=== PATIENT | male | born 1950 | race Two or more races ===

== ENCOUNTER 2017-12-26 06:25 | Inpatient (IN) | payer MEDICARE, OTHER ==
[~2017-12-26 06:25] MED LIST: BISACODYL 10 MG SUPP RECTAL PRN; BP Med; LACTULOSE SYRUP 20 GM/30 ML CUP PO PRN; MAGNESIUM HYDROXIDE SUSP 30 ML CUP PO PRN; NALOXONE HCL 0.4 MG/ML AMP IV PUSH PRN; ONDANSETRON HCL 4 MG/2 ML VIAL IVP PRN; PEPT262C2 CHEW; SENNOSIDES 8.6 MG TAB PO PRN; SODIUM CHLORIDE 0.9% FLUSH 10 ML FLUSH IV FLUSH PRN
[2017-12-26 07:50] VITALS: BP 127/88; PULSE 75; RESP 20; TEMP 96.3; O2SAT 98
[2017-12-26] MEDS: SODIUM CHLOR 0.9% 1000 ML INJ 1,000 ML IV SCH ×3 (08:00→22:18)
--- NOTE | 2017-12-26 08:57 | HHI.HP ---
[facility] Service [facility] Primary Care Physician Non-Staff Admission Diagnosis Abdominal pain Diagnoses: (1) Pancreatitis (2) Pulmonary nodule Chief Complaint: Abdominal pain Travel History International Travel<30 Days: No Contact w/Intl Traveler <30 Da: No Traveled to Known Affected Are: No History of Present Illness This is a pleasant 67-year-old male patient with a known medical history of CAD , hypertension and history of tobacco abuse who presented to the ED with complaints of abdominal pain with associated nausea. Patient states that his symptoms began 3 days ago after eating, thinking he had food poisoning. He stated his symptoms continued and felt like reflux, used multiple over-the- counter remedies including Tums without any relief. Patient rates his pain an 8 out of 10 on pain scale, characterized as aching and burning in nature, denies any radiation of pain. Patient states the pain is worse when he eats. Denies any relieving factors. Patient does admit to taking one baby aspirin daily. Denies any other NSAID use. He does state he underwent a colonoscopy 2 months ago which was reportedly negative. Follows with his PCP and denies any recent changes to his medicines. It should be noted that patient's father had a history of colon cancer as well as his mother having bone cancer. Patient denies any recent fevers, chills, cough, shortness of breath, headache, vomiting , diarrhea or dysuria. Patient denies any melena or hematochezia. Patient denies ever having this type of pain before. Abdomen/pelvis CT upon presentation showing possible early acute pancreatitis although lipase is within normal limits. Otherwise no acute findings found. Incidentally a right middle and right lower lobe nodule is seen. CT of the chest pending. Review of Systems Constitutional: COMPLAINS OF: Chills, DENIES: Fatigue, Fever Eyes: DENIES: Blurred vision, Diplopia Respiratory: DENIES: Cough, Sputum production, Shortness of breath Cardiovascular: DENIES: Chest pain, Palpitations Gastrointestinal: COMPLAINS OF: Abdominal pain, Nausea, DENIES: Black stools, Bloody stools, Constipation, Diarrhea, Vomiting Musculoskeletal: DENIES: Joint pain Hematologic/lymphatic: DENIES: Bruising Neurologic: DENIES: Abnormal gait Psychiatric: DENIES: Anxiety Except as stated in HPI: all other systems reviewed are Neg Past Family Social History Past Medical History CAD Hypertension History of tobacco abuse Past Surgical History Denies any previous surgeries. Colonoscopy 2 months ago. Reported Medications Active Reported [BP Med] Pepto-Bismol (Bismuth Subsalicylate) 262 Mg Chew 524 Mg CHEW PRN Allergies: Coded Allergies: No Known Allergies (Verified Allergy, Unknown, 12/26/17) Active Ordered Medications Current Medications Medications (Trade) Dose Ordered Sig/Mayela Route Start Time Stop Time Status Last Admin Sodium Chloride 1,000 ml @ 125 mls/hr Q8H IV 12/26/17 05:05 12/26/17 08:00 (NS Flush) 2 ml UNSCH PRN IV FLUSH 12/26/17 05:15 (NS Flush) 2 ml BID IV FLUSH 12/26/17 09:00 12/26/17 09:00 (Tylenol) 650 mg Q4H PRN PO 12/26/17 05:15 (Zofran Inj) 4 mg Q6H PRN IVP 12/26/17 05:15 (Narcan Inj) 0.4 mg UNSCH PRN IV PUSH 12/26/17 05:15 (Naomi-Colace) 1 tab BID PO 12/26/17 09:00 12/26/17 09:00 (Milk Of Magnesia Liq) 30 ml Q12H PRN PO 12/26/17 05:15 (Senokot) 17.2 mg Q12H PRN PO 12/26/17 05:15 (Dulcolax Supp) 10 mg DAILY PRN RECTAL 12/26/17 05:15 (Lactulose Liq) 30 ml DAILY PRN PO 12/26/17 05:15 (Protonix Inj) 40 mg Q24H IV PUSH 12/26/17 11:00 12/26/17 11:39 (Mag-Al Plus Susp Liq) 30 ml Q6H PRN PO 12/26/17 10:45 Family History Maternal medical history significant for bone cancer. Paternal medical history significant for colon cancer. Social History Patient states he quit tobacco use 25 years ago. Previously smoked 1 pack per day for 15 years. Patient states he is exposed to secondhand smoke with his . Admits to alcohol use once a month. Denies any illicit drug use. Physical Exam Vital Signs Vital Signs Date Time Temp Pulse Resp B/P (MAP) Pulse Ox O2 Delivery O2 Flow Rate FiO2 12/26/17 07:50 96.3 75 20 127/88 (101) 98 Physical Exam GENERAL: Well-developed, well-nourished patient in NAD. SKIN: Warm and dry. No rash. HEAD: Normocephalic. Atraumatic. EYES: Pupils equal and round. No scleral icterus. No injection or drainage. ENT: No nasal bleeding or discharge. Mucous membranes pink and moist. NECK: Supple. Trachea midline. CARDIOVASCULAR: Regular rate and rhythm. S1, S2 noted. No murmur appreciated. No chest pain to palpation. RESPIRATORY: No accessory muscle use. Clear to auscultation. Breath sounds equal bilaterally. GASTROINTESTINAL: Abdomen soft, tender to palpation in left upper and right upper quadrants and midepigastric area, nondistended. Normoactive bowel sounds x4. MUSCULOSKELETAL: No obvious deformities. Extremities without clubbing, cyanosis , or edema. NEUROLOGICAL: Awake and alert. No obvious cranial nerve deficits. Motor grossly within normal limits. 5/5 muscle strength in bilateral upper and lower extremities. Normal speech. PSYCHIATRIC: Appropriate mood and affect; insight and judgment normal. Septic Shock Reassessment Septic shock perfusion: reassessment completed Caprini VTE Risk Assessment Caprini VTE Risk Assessment: Mod/High Risk (score >= 2) Caprini Risk Assessment Model Point Value = 1 Point Value = 2 Point Value = 3 Point Value = 5 Age 41-60 Minor surgery BMI > 25 kg/m2 Swollen legs Varicose veins or History of unexplained or recurrent spontaneous Oral contraceptives or hormone replacement Sepsis (< 1 month) Serious lung disease, including pneumonia (< 1 month) Abnormal pulmonary function Acute myocardial infarction Congestive heart failure (< 1 month) History of inflammatory bowel disease Medical patient at bed rest Age 61-74 Arthroscopic surgery Major open surgery (> 45 min) Laparoscopic surgery (> 45 min) Malignancy Confined to bed (> 72 hours) Immobilizing plaster cast Central venous access Age >= 75 History of VTE Family history of VTE Factor V Leiden Prothrombin [id number] Lupus anticoagulant Anticardiolipin antibodies Elevated serum homocysteine Heparin-induced thrombocytopenia Other congenital or acquired thrombophilia Stroke (< 1 month) Elective arthroplasty Hip, pelvis, or leg fracture Acute spinal cord injury (< 1 month) Prophylaxis Regimen Total Risk Factor Score Risk Level Prophylaxis Regimen 0-1 Low Early ambulation 2 Moderate Order ONE of the following: *Sequential Compression Device (SCD) *Heparin 5000 units SQ BID 3-4 Higher Order ONE of the following medications: *Heparin 5000 units SQ TID *Enoxaparin/Lovenox 40 mg SQ daily (WT < 150 kg, CrCl > 30 mL/min) *Enoxaparin/Lovenox 30 mg SQ daily (WT < 150 kg, CrCl > 10-29 mL/min) *Enoxaparin/Lovenox 30 mg SQ BID (WT < 150 kg, CrCl > 30 mL/min) AND/OR *Sequential Compression Device (SCD) 5 or more Highest Order ONE of the following medications: *Heparin 5000 units SQ TID (Preferred with Epidurals) *Enoxaparin/Lovenox 40 mg SQ daily (WT < 150 kg, CrCl > 30 mL/min) *Enoxaparin/Lovenox 30 mg SQ daily (WT < 150 kg, CrCl > 10-29 mL/min) *Enoxaparin/Lovenox 30 mg SQ BID (WT < 150 kg, CrCl > 30 mL/min) AND *Sequential Compression Device (SCD) Assessment and Plan Problem List: (1) Pancreatitis ICD Code: K85.90 - Acute pancreatitis without necrosis or infection, unspecified (2) Pulmonary nodule ICD Code: R91.1 - Solitary pulmonary nodule Assessment and Plan This is a pleasant 67-year-old male patient with a known medical history of CAD , hypertension and history of tobacco abuse who presented to the ED with complaints of abdominal pain with associated nausea. Patient states that his symptoms began 3 days ago after eating, thinking he had food poisoning. Abdominal pain with associated nausea rule out pancreatitis versus gastroenteritis versus other unknown etiology - Abdominal/pelvis CT reviewed showing recent faint stranding in the peripancreatic fatty tissues adjacent to the pancreatic head. May represent very early pancreatitis. Lipase level is normal. Bilateral inguinal hernias. - Protonix 40 mg daily. Added Maalox for dyspepsia. Morphine IV available for pain. Toradol given 1 in ED. Continue IV fluids. - Mild leukocytosis on CBC, No left shift. - Supportive care. Abnormal UA with leukocyte esterase and white blood cells. Urine culture pending. Will follow. Started on ceftriaxone. Leukocytosis adjust as needed for FLACA and sensitivity. Right pulmonary nodule - Abdominal/pelvis CT showing right middle lobe nodule densities as well as right lower middle lobe nodules in the right perihilar lower lobe. - CT chest/thorax ordered and pending. - Pulmonology consulted and appreciate input and recommendations. History of smoking years ago. Exposed to second hand smoke, smokes, have been together for over 30 years. - Supplemental O2 as needed, patient is comfortable on room air. DVT Prophylaxis: SCDs. Heparin. Rhea Hernandez December 26, 2017 08:57
[2017-12-26] MEDS: SODIUM CHLORIDE 0.9% FLUSH 10 ML FLUSH IV FLUSH SCH ×2 (09:00→21:57)
[2017-12-26] MEDS: DOCUSATE SODIUM 50 MG/SENNA 8.6 MG TAB PO SCH ×2 (09:00→21:56)
[2017-12-26] MEDS ORDERED: KETOROLAC TROMETHAMINE 30 MG/ML (IVP) VIAL IV PUSH ONE (09:30)
[2017-12-26] MEDS ORDERED: ALUMINUM/MAGNESIUM/SIMETH 30 ML CUP PO PRN (10:45)
[2017-12-26] MEDS: PANTOPRAZOLE SODIUM 40 MG VIAL IV PUSH SCH (11:39)
[2017-12-26 12:25] VITALS: BP 142/89; PULSE 80; RESP 20; TEMP 97.2; O2SAT 94
[2017-12-26] MEDS ORDERED: MORPHINE SULFATE 4 MG/ML INJ IV PUSH PRN (13:30)
[2017-12-26] MEDS ORDERED: HEPARIN SODIUM - SQ 10,000 UNITS/ML VIAL SQ ONE (13:30)
[2017-12-26] MEDS: cefTRIAXone INJ 1,000 MG in SODIUM CHLORIDE 0.9% INJ 100 ML IV SCH (14:26)
[2017-12-26 15:52] VITALS: BP 120/77; PULSE 64; RESP 20; TEMP 96.3; O2SAT 64
[2017-12-26 20:00] VITALS: BP 129/76; PULSE 78; RESP 20; TEMP 98.1; O2SAT 93
--- NOTE | 2017-12-26 20:29 | MB ---
cc: Chandan Wen MD DATE: 12/26/2017 REQUESTING PHYSICIAN: Dr. Meghann Bettencourt REASON FOR CONSULTATION: Evaluate for lung nodule. HISTORY OF PRESENT ILLNESS: Mr. Carlson is a 67-year-old male with history of coronary artery disease and hypertension. He came to the hospital with 3 days history of abdominal pain in the mid epigastric area. He was also complaining of constipation. Did not have any nausea or vomiting. No fevers, chills. No night sweats. He came to the hospital. He had a CT scan of the abdomen done, which shows he has peripancreatic fatty tissue. Otherwise, no acute process. He has 3 nodular densities in the right middle and right lower lobe. CBC shows WBC count 15, hematocrit 14.3, hemoglobin 14.3, hematocrit 43.1, MCV 88, platelet count 251. Sodium 140, potassium 3.8, chloride 100, CO2 29, BUN 10, creatinine 0.90. AST 17, ALT 18, lipase 145. The patient states that just a little while ago, he had a big bowel movement. After this, the abdominal pain is much better. PAST MEDICAL HISTORY: Significant for coronary artery disease, hypertension, history of recent colonoscopy. MEDICATIONS: He is currently taking Rocephin 1 g a day, morphine for pain, Protonix 40 mg a day. ALLERGIES: NO KNOWN DRUG ALLERGIES. SOCIAL HISTORY: He has history of smoking, which he quit 30 years ago. Drinks socially. He works as a rn oncology clinical. FAMILY HISTORY: He is . He has 6 children. REVIEW OF SYSTEMS: No Fever, weight is stable. No malignancy. No DVT or pulmonary embolism. No seizure, stroke or epilepsy. PHYSICAL EXAMINATION: GENERAL: Elderly male, not in acute distress. VITAL SIGNS: Blood pressure 120/77, heart rate 64, respirations 20, temperature 96.3. HEENT: Unremarkable. NECK: Supple. JVD noted. CHEST: Symmetrical bilaterally. No rhonchi. CARDIOVASCULAR: S1, S2 normal. ABDOMEN: Soft, nontender, nondistended. Bowel sounds are present. EXTREMITIES: No edema. CENTRAL NERVOUS SYSTEM: Alert and oriented x 3. No focal deficit. IMPRESSION: 1. Lung nodule at the base of the lung seen on the CT scan of the abdomen. 2. Abdominal pain has improved. 3. History of nicotine use. 4. Hypertension. PLAN: I discussed with the patient, we will get the CT scan of the chest reviewed and then determine if the nodule needs biopsy or he can have serial CAT scan followup. Continue his present antibiotic. We will check his pulmonary function study. Further treatment will depend on the course in the hospital. Thank you, Dr. Meghann Bettencourt, for this consult. MD HARINDER Ward/DONN , 08:06 PM , 08:27 PM TG
[2017-12-27] VITALS: BP 121/79; PULSE 90; RESP 20; TEMP 99.5; O2SAT 93
[2017-12-27] MEDS: SODIUM CHLOR 0.9% 1000 ML INJ 1,000 ML IV SCH ×2 (05:05→13:05)
[2017-12-27 06:38] LABS: CHLORIDE 107 MEQ/L (98-107); SODIUM (NA) 139 MEQ/L (136-145)
[2017-12-27 06:41] LABS: ALBUMIN 2.9 GM/DL (3.4-5.0); BICARBONATE 28.7 MEQ/L (21.0-32.0); BLOOD UREA NITROGEN 9 MG/DL (7-18); GLUCOSE,RANDOM 92 MG/DL (74-106)
[2017-12-27 06:44] LABS: ALT (GPT) 20 U/L (12-78); AST (GOT) 14 U/L (15-37); CREATININE 0.98 MG/DL (0.60-1.30); GLOMERULAR FILTRATION RATE 76 ML/MIN (>89)
[2017-12-27 06:46] LABS: TOTAL BILIRUBIN ADULT 1.1 MG/DL (0.2-1.0); TOTAL PROTEIN 6.9 GM/DL (6.4-8.2)
[2017-12-27 06:47] LABS: ALKALINE PHOSPHATASE 69 U/L (45-117); AUTOMATED NEUTROPHIL # 7.9 TH/MM3 (1.8-7.7); BASOPHIL # 0.1 TH/MM3 (0-0.2); BASOPHIL % 0.9 % (0.0-2.0); EOSINOPHIL # 0.2 TH/MM3 (0-0.4); EOSINOPHIL % 2.2 % (0.0-4.0); HEMATOCRIT 41.5 % (39.0-51.0); HEMOGLOBIN 13.9 GM/DL (13.0-17.0); LYMPH % 16.5 % (9.0-44.0); LYMPHOCYTE # 1.8 TH/MM3 (1.0-4.8); MEAN CORPUSCULAR HEMOGLOBIN 29.5 PG (27.0-34.0); MEAN CORPUSCULAR HGB CONC 33.5 % (32.0-36.0); MONO % 8.7 % (0.0-8.0); MONOCYTE # 0.9 TH/MM3 (0-0.9); NEUT % 71.7 % (16.0-70.0); PLATELET COUNT 228 TH/MM3 (150-450); RED BLOOD COUNT 4.72 MIL/MM3 (4.50-5.90); RED CELL DISTRIBUTION WIDTH 13.1 % (11.6-17.2); WHITE BLOOD COUNT 10.9 TH/MM3 (4.0-11.0)
[2017-12-27] MEDS ORDERED: IOHEXOL 350 MG/ML 10 ML VIAL (for RAD DIAG) IVCONTRAST ONE (07:37)
--- NOTE | 2017-12-27 07:48 | RADRPT ---
EXAM DATE/TIME: 12/27/2017 07:26 [place] COMPARISON: CT ABDOMEN & PELVIS W CONTRAST, December 26, 2017, 1:50. INDICATIONS : Evaluate for mass. Lung nodules seen on CT Abdomen/pelvis. IV CONTRAST: 60 cc Omnipaque 350 (iohexol) IV RADIATION DOSE: 7.82 CTDIvol (mGy) MEDICAL HISTORY : Hypertension. SURGICAL HISTORY : None. ENCOUNTER: Initial ACUITY: 2 days PAIN SCALE: 3/10 LOCATION: lower chest TECHNIQUE: Volumetric scanning of the chest was performed. Using automated exposure control and adjustment of t he mA and/or kV according to patient size, radiation dose was kept as low as reasonably achievable to obtain optimal diagnostic quality images. DICOM format image data is available electronically for review and comparison. Follow-up recommendations for detected pulmonary nodules are based at a minimum on nodule size and pa tient risk factors according to Fleischner Society Guidelines. FINDINGS: LUNGS: There are several, approximately 8, pulmonary nodule seen measuring up to 0.8 cm. There is emphysemat ous change seen throughout the upper lungs. There is minimal suspected dependent atelectasis at the p osterior lower lobes. PLEURA: There is no pleural thickening or pleural effusion. MEDIASTINUM: The heart and great vessels demonstrate no acute abnormality. There is no mediastinal or hilar lymph adenopathy. AXILLAE: Within normal limits. No lymphadenopathy. SKELETAL: Within normal limits for patient age. MISCELLANEOUS: The patient had a CT of the abdomen and pelvis earlier today. CONCLUSION: 1. Multiple small pulmonary nodules. These are nonspecific. Multiple nodules could represent infectio us/inflammatory processes such as granulomas versus neoplastic and metastatic disease. 2. Emphysematous change in the upper lungs. Enio Valero MD on December 27, 2017 at 7:39 Board Certified Radiologist. This report was verified electronically.
[2017-12-27 09:00] VITALS: BP 142/99; PULSE 85; RESP 18; TEMP 96.4; O2SAT 94
--- NOTE | 2017-12-27 09:44 | HHI.PR ---
Subjective Remarks Follow-up chest pain and abdominal pain and pulmonary nodules. Patient seen and examined, lying in bed comfortably in no apparent distress. Eating well with no abdominal pain, nausea or vomiting. All symptoms have resolved. Chest CT reviewed showing multiple pulmonary nodules throughout lung barber. Spoke to Dr. Wen, pulmonology, who desires to see patient in follow-up in the office. Nodules are not able to be biopsied at this time. Will follow up in the office. Patient is understandable with the plan. Vital signs stable. Afebrile. Objective Vitals Vital Signs Date Time Temp Pulse Resp B/P (MAP) Pulse Ox O2 Delivery O2 Flow Rate FiO2 12/27/17 00:00 99.5 90 20 121/79 (93) 93 12/26/17 20:00 98.1 78 20 129/76 (93) 93 12/26/17 15:52 96.3 64 20 120/77 (91) 64 12/26/17 12:25 97.2 80 20 142/89 (106) 94 I/O 12/26/17 12/26/17 12/26/17 12/27/17 12/27/17 12/27/17 07:00 15:00 23:00 07:00 15:00 23:00 Intake Total 120 ml 480 ml Balance 120 ml 480 ml Intake Oral 120 ml 480 ml # Voids 3 4 # Bowel Movements 1 Result Diagram: 12/27/17 0605 12/27/17 0605 Imaging Last Impressions Chest CT 12/27/17 0000 Signed Impressions: Service Date/Time: December 07:26 - CONCLUSION: 1. Multiple small pulmonary nodules. These are nonspecific. Multiple nodules could represent infectious/inflammatory processes such as granulomas versus neoplastic and metastatic disease. 2. Emphysematous change in the upper lungs. Enio Valero MD Objective Remarks GENERAL: Well-developed, well-nourished patient in NAD. SKIN: Warm and dry. No rash. HEAD: Normocephalic. Atraumatic. EYES: Pupils equal and round. No scleral icterus. No injection or drainage. ENT: No nasal bleeding or discharge. Mucous membranes pink and moist. NECK: Supple. Trachea midline. CARDIOVASCULAR: Regular rate and rhythm. S1, S2 noted. No murmur appreciated. RESPIRATORY: No accessory muscle use. Clear to auscultation. Breath sounds equal bilaterally. GASTROINTESTINAL: Abdomen soft, non-tender, nondistended. Normoactive bowel sounds x4. MUSCULOSKELETAL: No obvious deformities. Extremities without clubbing, cyanosis , or edema. NEUROLOGICAL: Awake and alert. No obvious cranial nerve deficits. Motor grossly within normal limits. 5/5 muscle strength in bilateral upper and lower extremities. Normal speech. PSYCHIATRIC: Appropriate mood and affect; insight and judgment normal. A/P Problem List: (1) Pancreatitis ICD Code: K85.90 - Acute pancreatitis without necrosis or infection, unspecified (2) Pulmonary nodule ICD Code: R91.1 - Solitary pulmonary nodule Assessment and Plan This is a pleasant 67-year-old male patient with a known medical history of CAD , hypertension and history of tobacco abuse who presented to the ED with complaints of abdominal pain with associated nausea. Patient states that his symptoms began 3 days ago after eating, thinking he had food poisoning. Abdominal pain with associated nausea rule out pancreatitis versus gastroenteritis versus other unknown etiology - Abdominal/pelvis CT reviewed showing recent faint stranding in the peripancreatic fatty tissues adjacent to the pancreatic head. May represent very early pancreatitis. Lipase level is normal. Bilateral inguinal hernias. - Protonix 40 mg daily. Added Maalox for dyspepsia. Morphine IV available for pain. Toradol given 1 in ED. HEENT is well controlled. - Mild leukocytosis on CBC, No left shift. Stable. - Supportive care. Abnormal UA with leukocyte esterase and white blood cells. Urine culture probable contaminants. Will DC antibiotics. Right pulmonary nodule - Abdominal/pelvis CT showing right middle lobe nodule densities as well as right lower middle lobe nodules in the right perihilar lower lobe. - CT chest/thorax ordered and pending. - Pulmonology consulted and appreciate input and recommendations. History of smoking years ago. Exposed to second hand smoke, smokes, have been together for over 30 years. - Supplemental O2 as needed, patient is comfortable on room air. -Continue antibiotics on discharge. Follow-up PCP and pulmonology. DVT Prophylaxis: SCDs. Heparin. Rhea Hernandez December 27, 2017 09:44
[2017-12-27] MEDS: DOCUSATE SODIUM 50 MG/SENNA 8.6 MG TAB PO SCH (10:03)
[2017-12-27] MEDS: SODIUM CHLORIDE 0.9% FLUSH 10 ML FLUSH IV FLUSH SCH (10:04)
[2017-12-27] MEDS: ACETAMINOPHEN 325 MG TAB PO PRN ×2 (10:09→14:12)
[2017-12-27] MEDS: PANTOPRAZOLE SODIUM 40 MG VIAL IV PUSH SCH (10:37)
[2017-12-27 12:00] VITALS: BP 128/81; PULSE 80; RESP 18; TEMP 97.3; O2SAT 95
[2017-12-27] MEDS: cefTRIAXone INJ 1,000 MG in SODIUM CHLORIDE 0.9% INJ 100 ML IV SCH (14:13)
[2017-12-27] MEDS ORDERED: PANT20 PO (14:25)
--- NOTE | 2017-12-27 14:25 | HHI.DCPOC ---
Discharge Care Plan Diagnosis: (1) Pancreatitis (2) Pulmonary nodule Additional Problems PLEASE AVOID ALCOHOL. Goals to Promote Your Health * To prevent worsening of your condition and complications * To maintain your health at the optimal level Directions to Meet Your Goals Take your medications as prescribed Follow your dietary instruction Follow activity as directed Keep your appointments as scheduled Take your immunizations and boosters as scheduled If your symptoms worsen call your PCP, if no PCP go to Urgent Care Center or Emergency Room Smoking is Dangerous to Your Health. Avoid second hand smoke Call the 24-hour hour crisis hotline for domestic abuse at Rhea Hernandez December 27, 2017 14:25
[2017-12-27] MEDS ORDERED: MAG-LIQ PO (14:26)
[2017-12-27] MEDS ORDERED: AMOX875T2 PO (15:36)
--- NOTE | 2017-12-28 09:54 | RSPPFT ---
DATE OF PROCEDURE: 12/27/17 COMMENTS: Spirometry shows FVC of 3.9 at 62% of predicted, FEV1 of 3.0 at 74%, FEV1/FVC ratio is normal. Flow is normal at FEF 25-75. Flow is decreased at FEF 25, and FEF 75. There is no response after bronchodilator treatment. IMPRESSION: 1. Mild small airways obstructive lung disease. 2. No response after bronchodilator treatment.
== END 2017-12-27 15:15 | disposition home or self-care (01) | DRG 440 ==
LOC: PHEDDLT 06:25 → PH3A 06:35 → OBSVTOIN 15:51
PROVIDERS: ADMIT Hospitalist; ATTEND Hospitalist
DX: K85.90 Acute pancreatitis without necrosis or infection, unspecified (principal); I10 Essential (primary) hypertension; I25.10 Atherosclerotic heart disease of native coronary artery without angina pectoris; Z77.22 Contact with and (suspected) exposure to environmental tobacco smoke (acute) (chronic); K40.20 Bilateral inguinal hernia, without obstruction or gangrene, not specified as recurrent; R91.8 Other nonspecific abnormal finding of lung field; Z87.891 Personal history of nicotine dependence; Z79.82 Long term (current) use of aspirin
CPT/HCPCS: 71260; 74177; 80053; 81001; 83690; 85025; 87086; 93005; 94060; 96365; 96375; C9113; J0696; J1170; J1644; J1885; J2405; J2543; J7030; Q9967